=== PATIENT | female | born 1955 | race Caucasian/White ===

== ENCOUNTER 2016-03-29 09:28 | Inpatient (IN) | payer OTHER ==
--- NOTE | 2016-03-27 10:25 | GHP ---
[f rep st] PREOP HISTORY AND PHYSICAL DATE OF ADMISSION: 03/29/2016 PROBLEM: Left hip arthritis. HISTORY OF PRESENT ILLNESS: The patient is a 60-year-old woman admitted for a left total hip arthrop lasty. She has had progressive pain in her left hip for the past 6-8 months. She is having daily pa in and she has night pain when she rolls over onto the left hip. Standing and walking are painful. Her activities are very limited. She states that she has gained 40 pounds because she cannot walk fo r exercise. She is limping. She uses Aleve regularly. She has trouble putting on her shoes and soc ks on the left foot. Because of severe pain, and limitation of activities and function, and she has failed nonsurgical treatment, she will undergo a left total hip arthroplasty. PAST MEDICAL HISTORY: Overall, she is in excellent general health. No history of heart disease, david nts, DVT, hepatitis, or sleep apnea. No history of previous serious MRSA staph infections. CURRENT MEDICATIONS: None. ALLERGIES: Penicillin caused a rash many years ago. Drug allergies: None. Latex allergy: None. 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 She is smoking 6-8 cigarettes per day. She dr inks alcohol regularly. She is . FAMILY HISTORY: Negative. PHYSICAL EXAMINATION: GENERAL: She is an alert, healthy-appearing woman. EYES: The conjunctivae a nd sclerae are clear. Pupils are round and reactive. MOUTH: Fair oral hygiene. CHEST: Clear. No wheezing. HEART: Regular rhythm. No murmurs. EXTREMITIES: Pertinent findings are limited to her left hip. She has full hip extension and 80 degrees of flexion. External rotation 20 degrees. Inte rnal rotation 0 degrees. Abduction 20 degrees. She has pain at the extremes of motion. IMAGING: Films show degenerative arthritis of her left hip with cartilage space narrowing. She has moderate degenerative arthritis in her right hip. IMPRESSION ON ADMISSION: Bilateral hip degenerative arthritis. The left hip is more advanced and mo re symptomatic. She will undergo a left total hip arthroplasty. The surgery has been described to her, including the risks, complications, expectations, recovery myla e, and nonsurgical options. I have specifically discussed with her the risk of dislocation, leg emely th inequality, infection, and sciatic nerve injury. She understands that she is relatively young for a total hip replacement and may need revision surgery in the future. All her questions have been an swered and she consents to surgery. /[id number]/MODL
[~2016-03-29 09:28] MED LIST: ACETAMINOPHEN 325 MG TAB PO ONE; CHLORHEXIDINE GLUC HIBICLENS 118 ML BTL TP ONE; DEXAMETHASONE 4 MG/ML VIAL IVP ONE; FAMOTIDINE 20 MG TAB PO ONE; NS IV ONE; POVIDONE-IODINE 20 ML in SODIUM CL IRRIG SOLUTION 500 ML IRR ONE; ROPI/epiNEPH/KETOROLAC JOINT COCKTAIL IU ONE; TRANEXAMIC ACID IV ONE
[2016-03-29] MEDS ORDERED: DEXAMETHASONE 4 MG/ML VIAL ONE (10:07)
[2016-03-29] MEDS ORDERED: FAMOTIDINE 20 MG TAB ONE (10:07)
[2016-03-29] MEDS ORDERED: CEFAZOLIN 2 GM/DEXTROSE/100 ML BAG IV ONE (10:08)
[2016-03-29] MEDS ORDERED: ACETAMINOPHEN 325 MG TAB ONE (10:08)
[2016-03-29] MEDS ORDERED: ceFAZolin 1 GM/5 ML SYR ONE (10:10)
[2016-03-29] MEDS ORDERED: SKIN ADHESIVE (DERMABOND) 1 EACH TP ONE (10:10)
[2016-03-29] MEDS ORDERED: fentaNYL 100 MCG/2 ML INJ ONE (11:23)
[2016-03-29] MEDS ORDERED: PROPOFOL/EMULSION 500 MG/50 ML BOTTLE IV ONE (11:24)
[2016-03-29] MEDS ORDERED: MIDAZOLAM 2 MG/2 ML VIAL ONE (12:08)
[2016-03-29] MEDS ORDERED: LIDOCAINE 2% 5 ML SDV ONE (12:31)
--- NOTE | 2016-03-29 13:47 | POSTOPPROG ---
Post Op Note Date of Operation: 03/29/16 Surgeon: Demarcus Cottrell Account Specialist: Adrian Anesthesiologist: Rickie Anesthesia: IV Sedation, Spinal Post-op Diagnosis: left hip arthritis Procedure: left NABEEL Inf/Abcess present in the surg proc area at time of surgery?: No EBL: 100-500
[2016-03-29] MEDS ORDERED: PROMETHAZINE HCL 25 MG SUPPR PR PRN (13:59)
[2016-03-29] MEDS ORDERED: NS 500 ML IV PRN (13:59)
[2016-03-29] MEDS ORDERED: PROMETHAZINE HCL 25 MG/ML VIAL IVP PRN (13:59)
[2016-03-29] MEDS ORDERED: LACTULOSE 20 GM/30 ML UDCUP PO PRN (13:59)
[2016-03-29] MEDS ORDERED: KETOROLAC 30 MG/1 ML SDV IVP PRN (13:59)
[2016-03-29] MEDS ORDERED: traMADol 50 MG TAB PO PRN (13:59)
[2016-03-29] MEDS ORDERED: ONDANSETRON DISINTEGRATING 4 MG TAB PO PRN (13:59)
[2016-03-29] MEDS ORDERED: ONDANSETRON 4 MG/2 ML VIAL IVP PRN (13:59)
[2016-03-29] MEDS ORDERED: diphenhydrAMINE 25 MG CAP PO PRN (13:59)
[2016-03-29] MEDS ORDERED: TEMAZEPAM 15 MG CAP PO PRN (13:59)
[2016-03-29] MEDS ORDERED: PHARMACY PAIN CONSULT 1 EA MISC PRN (13:59)
[2016-03-29] MEDS ORDERED: CYCLOBENZAPRINE 10 MG TAB PO PRN (13:59)
[2016-03-29] MEDS ORDERED: METOCLOPRAMIDE 10 MG/2 ML VIAL IVP PRN (13:59)
[2016-03-29] MEDS ORDERED: DIPHENOXYLATE/ATROPINE LOMOTIL 1 TAB PO PRN (13:59)
[2016-03-29] MEDS ORDERED: POLYETHYLENE GLYCOL 3350 17 GM PKT PO PRN (13:59)
[2016-03-29] MEDS ORDERED: MAGNESIUM HYDROXIDE 30 ML UDCUP PO PRN (13:59)
[2016-03-29] MEDS ORDERED: BISACODYL 10 MG SUPP PR PRN (13:59)
[2016-03-29] MEDS ORDERED: LR 1,000 ML IV SCH (14:00)
--- NOTE | 2016-03-29 15:07 | GOP ---
[f rep st] OPERATIVE REPORT DATE OF OPERATION: 03/29/2016 SURGEON: Demarcus Cottrell MD STAVE JOINTER: Randy Meneses and Link Herndon. ANESTHESIA: Combination of Marcaine spinal and IV sedation. ANESTHESIOLOGIST: Dr. Kofi Damian. PREOPERATIVE DIAGNOSIS: Left hip degenerative arthritis. POSTOPERATIVE DIAGNOSIS: Left hip degenerative arthritis. PROCEDURE PERFORMED: A left total hip arthroplasty, ceramic femoral head on highly cross-link polyet hylene cup liner. FINDINGS: DESCRIPTION OF PROCEDURE: The patient was given 2 g of IV Ancef preoperatively within 60 minutes of surgery. She also received IV tranexamic acid at a dose of 20 mg/kg. She was placed on the operatin g room table and given spinal anesthesia with Marcaine by Dr. Damian. She was then placed supin e and given IV sedation. A Burrell catheter was not used. She wore a SUHA stocking and SCD on the nono perative leg. She was rolled to the right lateral decubitus position. The position was secured with the pegboard table attachment. An axillary roll was used and all pressure points were carefully pad ded. I was careful to lock her pelvis in a rigid vertical position. She was a large lady and that m nina positioning difficult. Her perineum was isolated with plastic adhesive drapes. The left hip and left lower extremity were prepped with ChloraPrep. They were draped free using sterile sheets, stoc kinette, and Ioban plastic drapes. The World Health Organization time-out was performed to verify the correct surgical side and the [facility] patient identity. The Early time-out was also performed. I made a 5-6 inch straight oblique posterolateral hip skin incision. Subcutaneous tissues were sharp ly divided and hemostasis was obtained using electrocautery. She had a deep layer of subcutaneous fa t. The fascia mckenna was identified and split along the axis of its fibers. I then curved posteriorly and proximally and split the fascia of gluteus maris and bluntly split the muscle fibers in line w ith their orientation. The Charnley self-retaining retractor was inserted. Her sciatic nerve was lo cated, partially exposed and protected throughout the procedure. The external rotators and the poste rior hip capsule were divided as separate layers at the base of the femoral neck, tagged and reflecte d posteriorly. A smooth 8-inch Steinmann pin was inserted directly into the ilium superior to the ac etabulum. An 8-inch drill bit was inserted vertically into the greater trochanter and parallel to th e first pin. The distance between the 2 was measured for leg length reference. Her femoral head was dislocated posteriorly. Severe degenerative changes were present on her femoral head. The femoral neck was osteotomized at the appropriate level and inclination. I was careful to preserve all the posterior capsule and most of the anterior capsule. The remnant of her damaged labrum was excised. I prepared the femur first. This allowed me to supervisor fabrication the amount of natural femoral neck anteversion. This in turn allowed me to later determine the correct amount of cup anteversion. She had approxim ately 15 degrees of natural femoral neck anteversion. Her canal was opened laterally with a box chis el. I reamed and broached sequentially up to size 9. The size 9 broach was used as a trial stem. I was careful to lateralize adequately. Appropriate retractors were inserted to expose the acetabulum . Her acetabulum was reamed sequentially to 51 mm. I selected a 52 mm Perris Tritanium solid-backe d hemispherical shell. This was tapped securely into place in the proper degree of inclination and a nteversion. I used the transverse acetabular ligament and other acetabular bony landmarks to help me properly orient the cup. The fixation was tight and I did not think supplemental screw fixation was necessary. I did insert a screw in metal dome hole plug. I performed a series of trial reductions to determine length and stability. I concluded that the siz e 9 stem with a 0 mm neck length and a 32 mm head with a flush-mounted trial liner gave me the proper combination of appropriate length and good anterior and posterior stability. Because she had a good amount of anteversion on her femoral neck. I was careful not to over antevert the cup. The flush Maria Esther X3 highly cross-linked polyethylene liner was inserted and tapped securely into sherwin ce. I chose the Maria Esther secure fit max stem in a size 9 with standard offset. This was inserted, pr ess-fit and was tight. I did 1 final trial reduction and confirmed that the 0 mm neck length with a 32 mm head was the proper combination. I selected the Maria Esther Biolox Delta ceramic head with an outs yulia diameter of 32 mm and a neck length of 0 mm. The head was tapped securely onto the clean trunnio n. The acetabulum was irrigated and cleaned and the hip was reduced 1 final time. She had excellent anterior and posterior stability and appropriate length. 40 mL of the joint anesthetic cocktail were injected into the capsule, the deep musculature and the s ubcutaneous tissues along the skin edges. The joint was thoroughly irrigated 1 final time with a dil isaías Betadine solution. Her sciatic nerve was reinspected and looked unharmed. The external rotators and the posterior hip capsule were repaired in separate layers with #2 FiberWire sutures through dri ll holes in the greater trochanter. This provided a strong posterior capsular and external rotator r epair. The fascia mckenna was closed first with a couple of interrupted [id number]-[id number] #2 FiberWire martinez tures followed by a running #2 barbed Ethicon Stratafix PDO suture. The subcutaneous tissues were cl osed in layers using first interrupted 2-0 Monocryl sutures followed by a running #3 barbed Ethicon S tratafix Monoderm subcuticular suture. The skin edges were reapproximated and sealed with Dermabond glue. The wound was covered with a strip of Telfa and everything was held in place with a piece of c lear plastic Tegaderm. A long-leg SUHA stocking and SCD were applied to her left lower extremity. An abduction pillow was pl aced between her knees. She was awakened from anesthesia and rolled to the supine position on her [facility] gurney. She was taken to PACU in satisfactory condition. There were no recognized intraopera tive complications. The estimated blood loss was 400 mL. I used a Maria Esther titanium press-fit solid backed acetabular shell with an outside diameter of 52 mm. The liner was a Perris X3 flush highly cross-linked liner with an inside diameter of 32 mm. The fe moral component was a standard offset Maria Esther secure fit max stem in a size 9 and press-fit. Her fem oral head was a Perris Biolox Delta ceramic head with a 0 neck length and a 32 mm outside diameter. Randy Meneses and Link Herndon acted as surgical assistants. Their assistance was a medical necess ity. /[id number]/MODL
--- NOTE | 2016-03-29 15:07 | DX ---
Single-View Pelvis at 1417 Hours History: Left total hip arthroplasty. Findings: Left total hip arthroplasty appears in anatomic alignment. Right hip demonstrates no degene rative changes. Impression: Left total hip arthroplasty appears in anatomic alignment.
[2016-03-29] MEDS: ACETAMINOPHEN 325 MG TAB PO SCH ×2 (16:49→23:08)
[2016-03-29] MEDS: TRANEXAMIC ACID 650 MG TAB PO SCH ×2 (16:49→23:09)
[2016-03-29] MEDS ORDERED: NICOTINE 21 MG/24 HR PATCH TD SCH ×2 (17:30)
[2016-03-29] MEDS: oxyCODONE IR 5 MG TAB PO PRN ×2 (18:53→23:08)
[2016-03-29] MEDS: FAMOTIDINE 20 MG TAB PO SCH (19:55)
[2016-03-29] MEDS: SENNOSIDES/DOCUSATE SODIUM TAB PO SCH (19:55)
[2016-03-29] MEDS: ceFAZolin 2 GM/DEXTROSE 100 ML IV SCH (19:55)
[2016-03-29] MEDS: ASPIRIN 325 MG TAB PO SCH (19:55)
[2016-03-30 03:16] VITALS: RESP 16
[2016-03-30 03:54] VITALS: O2SAT 96
[2016-03-30] MEDS: ceFAZolin 2 GM/DEXTROSE 100 ML IV SCH (04:03)
[2016-03-30] MEDS: oxyCODONE IR 5 MG TAB PO PRN ×2 (04:06→11:41)
[2016-03-30] MEDS: ACETAMINOPHEN 325 MG TAB PO SCH ×2 (04:59→11:40)
[2016-03-30 05:29] LABS: HEMATOCRIT 36.5 % (38.0-47.0); HEMOGLOBIN 12.2 g/dL (12.6-16.3)
[2016-03-30 08:24] VITALS: BP 97/48; PULSE 78; TEMP 97.7
[2016-03-30] MEDS ORDERED: FERROUS SULFATE 140 MG TAB.ER PO SCH (09:00)
--- NOTE | 2016-03-30 09:29 | SOAPPROG ---
SOAP Progress Note Assessment/Plan: Assessment: Afebrile. Moderate pain. Walking in room. Dsg is dry. Moderate ecchymosis. Sciatic nerve intact. Films look good. H/H is good. Plan: PT today. DC later today. 03/30/16 09:28 Objective: Vital Signs Temp Pulse Resp BP Pulse Ox 36.5 C 78 16 97/48 L 96 03/30/16 08:00 03/30/16 08:00 03/30/16 08:00 03/30/16 08:00 03/30/16 08:00 Laboratory Results 03/30/16 04:26 03/29/16 03/30/16 03/31/16 05:59 05:59 05:59 Intake Total Output Total 4280 Balance 15580 ICD10 Worksheet Patient Problems: Problems Problem Status Diagnosed Primary osteoarthritis of left hip Acute
--- NOTE | 2016-03-30 09:30 | PDIAF ---
- Diagnosis Diagnosis: left hip arthritis Code Status: Full Code - Medication Management Discharge Medications: Medications to Continue on Transfer Naproxen Sodium [Aleve 220 MG (*)] 440 mg PO DAILY PRN 03/14/16 [Last Taken Unknown] Acetaminophen [Tylenol 325mg (*)] 650 mg PO Q6HRS #0 tab 03/30/16 [Last Taken Unknown] Aspirin [Aspirin 325 mg (*)] 325 mg PO DAILY #21 tab 03/30/16 [Last Taken Unknown] Ferrous Sulfate [Slow Fe 140 MG (*)] 140 mg PO DAILY #30 tab.er 03/30/16 [Last Taken Unknown] Ondansetron Odt [Zofran Odt 4 mg (*)] 4 mg PO Q4HRS PRN #0 tab 03/30/16 [Last Taken Unknown] oxyCODONE IR [Oxycodone Ir (*)] 5 - 10 mg PO Q3HRS PRN #0 tab 03/30/16 [Last Taken Unknown] traMADol [Ultram 50 mg (*)] 50 mg PO Q6HRS PRN #0 tab 03/30/16 [Last Taken Unknown] Discharge Medications: Refer to the Discharge Home Medication list for PRN reason. PICC Care - Routine: N/A - Orders Services needed: Home Care, Physical Therapy Home Care Face to Face: I certify that this patient was under my care and that I had the required [id number] encounter meeting the encounter requirements on the discharge day. My findings support the fact that the patient is homebound as defined in CMS Chapter 7 Medicare Benefits Manual 30.1.1, The condition of the patient is such that there exists a normal inability to leave home and consequently, leaving home would require a considerable and taxing effort. Diet Recommendation: no restrictions on diet Diet Texture: Regular Texture Diet Burrell: Not applicable Bill Stockings Discontinue Date: 1 week Wound Care Instructions: keep clean and dry. You may shower. Activity/Weight Bearing Restrictions: as tolerated. - Follow Up Care Current Providers and Referrals: Cathie Vance MD [Primary Care Provider] - Demarcus Cottrell MD [Medical Doctor] - follow up in 2 weeks ()
--- NOTE | 2016-03-30 10:14 | GDS ---
[f rep st] DISCHARGE SUMMARY ADMITTING DIAGNOSIS: Left hip advanced degenerative arthritis. DISCHARGE DIAGNOSIS: Left hip advanced degenerative arthritis. NAME OF PROCEDURE: 03/29/2016: Left total hip arthroplasty, ceramic femoral head on highly cross-li nk polyethylene cup liner. POSTOPERATIVE DIAGNOSIS: None. CONDITION ON DISCHARGE: Improved. DESCRIPTION OF HOSPITAL COURSE: The patient was admitted to the hospital on the morning of surgery. Her admission CBC, electrolytes, and BUN and creatinine were all normal. The same day under combina tion of Marcaine, spinal and IV sedation, she underwent a left total hip arthroplasty. Postoperative ly, she was treated with multimodal DVT prophylaxis including aspirin. On the 1st postoperative day, her hemoglobin and hematocrit 12.2 and 36.5. She did not require any transfused blood. She was see n by Physical Therapy and made good progress with ambulation and stairs. By the time of discharge, s he was afebrile, her wound was clean and dry, and she was independent walking with a walker. DISPOSITION: The patient is discharged to her home. She will have home physical therapy. Continue aspirin 325 mg p.o. daily for 21 days. She may progress to full weightbearing on the left as tolerat ed. Use an abduction pillow in bed for 3 weeks. Use SUHA stockings for 1 week. She has prescription s for oxycodone and tramadol for pain control. I will see her back in the office on April 21, 2016 . If there are any problems, she is to call me at the office. /[id number]/MODL
[2016-03-30] MEDS: ASPIRIN 325 MG TAB PO SCH (11:40)
[2016-03-30] MEDS: FAMOTIDINE 20 MG TAB PO SCH (11:41)
[2016-03-30] MEDS: SENNOSIDES/DOCUSATE SODIUM TAB PO SCH (11:41)
== END 2016-03-30 14:54 | disposition home health service (06) | DRG 470 ==
LOC: F3N 09:28
PROVIDERS: ADMIT Orthopaedic Surgery; ATTEND Orthopaedic Surgery
PROC: 0SRB04Z Replacement of Left Hip Joint with Ceramic on Polyethylene Synthetic Substitute, Open Approach (ICD-10-PCS; principal; 2016-03-29 11:15)
DX: M16.12 Unilateral primary osteoarthritis, left hip (principal); F17.210 Nicotine dependence, cigarettes, uncomplicated; E66.9 Obesity, unspecified
CPT/HCPCS: 97110-GP; 97116-GP; 97161-GP; 97165-GO; J0171; J0690; J1100; J1885; J2250; J2704; J2795; J3010

== ENCOUNTER 2016-08-23 07:26 | Inpatient (IN) | payer OTHER ==
[2016-08-18 16:25] LABS: % IMMATURE GRANULYOCYTES 0.1 % (0.0-1.1); ABSOLUTE IMMATURE GRANULOCYTES 0.01 10^3/uL (0.00-0.10); ADD DIFF? NO; ADD MORPH? NO; ADD SCAN? NO; ATYPICAL LYMPHOCYTE FLAG 20 (0-99); FRAGMENT RBC FLAG 0 (0-99); HEMATOCRIT 43.6 % (38.0-47.0); HEMOGLOBIN 14.6 g/dL (12.6-16.3); LEFT SHIFT FLG 0 (0-99); LIPEMIA HEMOLYSIS FLAG 80 (0-99); MEAN CELL HEMOGLOBIN 32.4 pg (27.9-34.1); MEAN CELL HEMOGLOBIN CONCENTR. 33.5 g/dL (32.4-36.7); MEAN CELL VOLUME 96.9 fL (81.5-99.8); MEAN PLATELET VOLUME 11.3 fL (8.7-11.7); PLATELET CLUMPS FLAG 0 (0-99); PLATELET COUNT 227 10^3/uL (150-400); RED CELL DISTRIBUTION WIDTH 12.8 % (11.5-15.2)
--- NOTE | 2016-08-19 09:15 | GHP ---
[f rep st] PREOP HISTORY AND PHYSICAL DATE OF OPERATION: She will be an a.m. admission for surgery on August 23, 2016. PROBLEM: Right hip arthritis. HISTORY OF PRESENT ILLNESS: The patient is a 60-year-old woman admitted for a right total hip arthroplasty. She has had progressive pain in both hips for the past 10-12 months. She has been having daily pain and night pain. Walking and standing are painful. Her activities are limited. She underwent a left total hip arthroplasty on March 29, 2016, with an excellent result. She is admitted for a right total hip arthroplasty now. PAST MEDICAL HISTORY: Overall, she is in excellent general health. No history of heart disease, stents, DVT, or sleep apnea. CURRENT MEDICATIONS: None. DRUG ALLERGIES: Penicillin caused a rash many years ago. METAL ALLERGIES: None. LATEX ALLERGY: None. SOCIAL HISTORY: The patient is . 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 She is still smoking 6-8 cigarettes per day. She drinks alcohol regularly. FAMILY HISTORY: Negative. PHYSICAL EXAMINATION: GENERAL: She is a healthy-appearing woman. Height 5 feet 6-1/2 inches. Weight 205 pounds. BMI 32.6. EYES: The conjunctivae and sclerae are clear. Pupils are round and reactive. MOUTH: Fair oral hygiene. CHEST: Clear. HEART: Regular rhythm. No murmurs. EXTREMITIES: Pertinent findings are limited to her right hip. She has full hip extension and 100 degrees of flexion. External rotation 30 degrees. Internal rotation 0 degrees. Abduction 20 degrees. She has pain at the extremes of motion. IMAGING: Her films show degenerative arthritis in her right hip. Her left total hip looks fine. IMPRESSION ON ADMISSION: 1. Right hip arthritis. She is prepared for a right total hip arthroplasty. 2. Six months status post successful left total hip arthroplasty. /[id number]/MODL MTDD
[2016-08-23] MEDS ORDERED: LIDOCAINE 1% 2 ML INJ ONE (08:13)
[2016-08-23] MEDS ORDERED: ceFAZolin 1 GM/5 ML SYR ONE (08:17)
[2016-08-23] MEDS ORDERED: DEXAMETHASONE 4 MG/ML VIAL ONE (08:47)
[2016-08-23] MEDS ORDERED: CEFAZOLIN 2 GM/DEXTROSE/100 ML BAG IV ONE (08:47)
[2016-08-23] MEDS ORDERED: ACETAMINOPHEN 325 MG TAB ONE ×2 (08:47→12:49)
[2016-08-23] MEDS ORDERED: FAMOTIDINE 20 MG TAB ONE (08:50)
[2016-08-23] MEDS ORDERED: FAMOTIDINE 20 MG TAB PO ONE (09:00)
[2016-08-23] MEDS ORDERED: ROPI/epiNEPH/KETOROLAC JOINT COCKTAIL IU ONE (09:00)
[2016-08-23] MEDS ORDERED: ACETAMINOPHEN 325 MG TAB PO ONE (09:00)
[2016-08-23] MEDS ORDERED: DEXAMETHASONE 4 MG/ML VIAL IVP ONE (09:00)
[2016-08-23] MEDS ORDERED: POVIDONE-IODINE 20 ML in SODIUM CL IRRIG SOLUTION 500 ML IRR ONE (09:00)
[2016-08-23] MEDS ORDERED: TRANEXAMIC ACID 1,860 MG in NS 100 ML IV ONE (09:00)
[2016-08-23] MEDS ORDERED: CHLORHEXIDINE GLUC HIBICLENS 118 ML BTL TP ONE (09:00)
[2016-08-23] MEDS ORDERED: CEFAZOLIN 2 GM/DEXTR 100 ML IV ONE (09:00)
[2016-08-23] MEDS ORDERED: MIDAZOLAM 2 MG/2 ML VIAL ONE (09:23)
[2016-08-23] MEDS ORDERED: PROPOFOL 200 MG/20 ML VIAL ONE ×3 (09:29→10:24)
[2016-08-23] MEDS ORDERED: PROMETHAZINE HCL 25 MG/ML INJ IVP PRN (11:21)
[2016-08-23] MEDS ORDERED: traMADol 50 MG TAB PO PRN (11:21)
[2016-08-23] MEDS ORDERED: PROMETHAZINE HCL 25 MG SUPPR PR PRN (11:21)
[2016-08-23] MEDS ORDERED: TEMAZEPAM 15 MG CAP PO PRN (11:21)
[2016-08-23] MEDS ORDERED: NS 500 ML IV PRN (11:21)
[2016-08-23] MEDS ORDERED: DIPHENOXYLATE/ATROPINE LOMOTIL 1 TAB PO PRN (11:21)
[2016-08-23] MEDS ORDERED: LACTULOSE 20 GM/30 ML UDCUP PO PRN (11:21)
[2016-08-23] MEDS ORDERED: MAGNESIUM HYDROXIDE 30 ML UDCUP PO PRN (11:21)
[2016-08-23] MEDS ORDERED: ONDANSETRON 4 MG/2 ML VIAL IVP PRN (11:21)
[2016-08-23] MEDS ORDERED: diphenhydrAMINE 25 MG CAP PO PRN (11:21)
[2016-08-23] MEDS ORDERED: POLYETHYLENE GLYCOL 3350 17 GM PKT PO PRN (11:21)
[2016-08-23] MEDS ORDERED: METOCLOPRAMIDE 10 MG/2 ML VIAL IVP PRN (11:21)
[2016-08-23] MEDS ORDERED: ONDANSETRON DISINTEGRATING 4 MG TAB PO PRN (11:21)
[2016-08-23] MEDS ORDERED: BISACODYL 10 MG SUPP PR PRN (11:21)
[2016-08-23] MEDS ORDERED: PHARMACY PAIN CONSULT 1 EA MISC PRN (11:21)
--- NOTE | 2016-08-23 11:26 | POSTOPPROG ---
Post Op Note Date of Operation: 08/23/16 Surgeon: Demarcus Cottrell Pinion Sorter: Adrian Anesthesiologist: Francisco J Anesthesia: IV Sedation, Spinal Post-op Diagnosis: R hip arthritis Procedure: R NABEEL Inf/Abcess present in the surg proc area at time of surgery?: No EBL: 100-500
[2016-08-23] MEDS ORDERED: LR 1,000 ML IV SCH (11:30)
[2016-08-23] MEDS: KETOROLAC 30 MG/1 ML SDV IVP PRN ×2 (12:00→18:18)
[2016-08-23] MEDS: CYCLOBENZAPRINE 10 MG TAB PO PRN ×2 (12:00→21:00)
[2016-08-23] MEDS: ACETAMINOPHEN 325 MG TAB PO SCH ×2 (12:00→18:09)
--- NOTE | 2016-08-23 12:37 | GOP ---
[f rep st] OPERATIVE REPORT DATE OF OPERATION: 08/23/2016 SURGEON: Demarcus Cottrell MD HOOP ROLLS OPERATOR: Randy Meneses, [facility], Shahid Herndon, PAC. ANESTHESIA: A combination of Marcaine, spinal, and IV sedation. ANESTHESIOLOGIST: Brandon Marx MD. PREOPERATIVE DIAGNOSIS: Right hip arthritis. POSTOPERATIVE DIAGNOSIS: Right hip arthritis. PROCEDURE PERFORMED: Right total hip arthroplasty, ceramic femoral head on highly cross-linked poly ethylene cup liner. FINDINGS: DESCRIPTION OF PROCEDURE: The patient was given 2 g of IV Ancef preoperatively within 60 minutes of surgery. She also received IV tranexamic acid at a dose of 20 mg/kg. She was placed on the operat ing room table and given spinal anesthesia with Marcaine by Dr. Marx. She was then placed supin e and given IV sedation. A Burrell catheter was not used. She wore a SUHA stocking and SCD on the non operative leg. She was rolled to the left lateral decubitus position. The position was secured wit h the pegboard table attachment. An axillary roll was used, and all pressure points were carefully padded. I was careful to lock her pelvis in a rigid vertical position. Her perineum was isolated w ith plastic adhesive drapes. She was a big lady, height 5 feet 6-1/2 inches, weight 205 pounds, BMI 32.6. Her position was secured with the pegboard table attachment. An axillary roll was used, and all pressure points were carefully padded. I was careful to lock her pelvis in a vertical position . Her perineum was isolated with plastic adhesive drapes. The right hip and right lower extremity were prepped with ChloraPrep. They were draped free using sterile sheets, stockinette, and Ioban pl astic drapes. The World Health Organization time-out procedure was performed to verify the correct surgical side a nd the correct patient identity. The [place] time-out was also performed. I made a 5 to 6-inch straight oblique posterolateral hip skin incision. Subcutaneous tissues were s harply divided, and hemostasis was obtained using electrocautery. The fascia mckenna was identified an d split along the axis of its fibers. I then curved posteriorly and proximally and split the fascia of the gluteus maris and bluntly split the muscle fibers in line with their orientation. The Aga bailey self-retaining retractor was inserted. Her sciatic nerve was located, partially exposed, and protected throughout the procedure. The external rotators and the posterior hip capsule were divide d as separate layers at the base of the femoral neck, tagged, and reflected posteriorly. A smooth 8 -inch Steinmann pin was inserted vertically into the ilium, superior to the acetabulum. An 8-inch d rill bit was inserted vertically into the greater trochanter and parallel to the first pin. The dis tance between the two was measured for leg length reference. Her femoral head was dislocated cable installer iorly. Her femoral neck was osteotomized at the appropriate level and inclination. I was careful to preserve all the posterior capsule and most of the anterior capsule. The remnant o f her damaged labrum was excised. I prepared the femur first. This allowed me to meeting/event planner the amount of natural femoral neck anteversion . This, in turn, allowed me to later determine the correct amount of cup anteversion. She had appr oximately 10-15 degrees of natural femoral neck anteversion. The canal was opened laterally with a box chisel. I reamed and broached sequentially up to a size 9. I used a size 9 broach as a trial s tem. I was careful to lateralize adequately. Appropriate retractors were inserted to expose the acetabulum. The acetabulum was reamed sequential ly up to 51 mm. I selected a 52 mm Reardan Tritanium solid-backed hemispherical shell. This was ta pped securely into place in the proper degree of inclination and anteversion. I used the transverse acetabular ligament and other acetabular bony landmarks to help me properly orient the cup. I inse rted a screw-in metal dome hole plug. I performed a series of trial reductions to determine length and stability. I concluded that the si ze 9 stem with a -2.5 mm neck length, a 32 mm head, and a flush liner gave me the proper combination of appropriate length and good anterior and posterior stability. She was a few millimeters short p reoperatively, and I was intentionally lengthening her. The flush or zero-degree Maria Esther X3 highly crosslink polyethylene liner was inserted and tapped secu rely into place. I selected the Maria Esther Secur-Fit Max stem in a size 9 with standard offset. This was inserted press-fit and was very tight. I did 1 final trial reduction and confirmed that the -2. 5 mm neck length with a 32 mm head was the proper combination. I selected the Reardan Biolox Delta ceramic head with an outside diameter of 32 mm and a neck length of -2.5 mm. The head was tapped se curely onto the clean trunnion. Her acetabulum was irrigated and cleaned, and the hip was reduced 1 final time. She had excellent anterior and posterior stability and appropriate lengthening. 40 mL of the joint anesthetic cocktail was injected into the capsule, the deep musculature, and the subcutaneous tissues around the skin edges. The joint was thoroughly irrigated 1 final time with a dilute Betadine solution. Her sciatic nerve was reinspected and looked unharmed. The external rota tors and the posterior hip capsule were repaired in separate layers with #2 FiberWire sutures throug h drill holes in the greater trochanter. This provided a strong posterior capsular and external rot ator repair. Her fascia mckenna was closed first with 2 interrupted #2 [id number] FiberWire sutur es, followed by a running #2 barbed Ethicon Stratafix PDO suture. She had a 3-inch layer of subcuta neous fat. The subcutaneous tissues were closed in layers using interrupted 2-0 Monocryl sutures fi rst, and followed by a running 0 barbed Ethicon Stratafix Monoderm suture. The skin was closed with a running 3-0 barbed Ethicon Stratafix Monoderm subcuticular suture. The skin edges were reapproxi mated and sealed with Dermabond glue. The wound was covered with a strip of Telfa, and everything w as held in place with a piece of clear plastic Tegaderm. A long-leg SUHA stocking and SCD were applied to her right lower extremity. She wore a stocking and SCD on the opposite leg during the procedure. An abduction pillow was placed between her knees. Alex serna was awakened from anesthesia and rolled to the supine position on her [facility]. She was ta gissell to PACU in satisfactory condition. There were no recognized intraoperative complications. The estimated blood loss was about 300 mL. The sponge and needle count were correct on 2 occasions. I used a Reardan Tritanium hemispherical solid-backed acetabular shell with an outside diameter of 5 2 mm. The liner was a Reardan X3 zero-degree highly cross-linked liner with an inside diameter of 3 2 mm. The femoral component was a press-fit Maria Esther standard offset Secur-Fit Max stem in a size 9. The femoral head was a Maria Esther Biolox Delta ceramic head with a -2.5 mm neck length and a 32 mm ou tside diameter. Randy Meneses and Link Herndon acted as surgical assistants. Their assistance was a tal schumacher. /[id number]/MODL
[2016-08-23] MEDS ORDERED: KETOROLAC 30 MG/1 ML SDV ONE (12:49)
[2016-08-23] MEDS ORDERED: CYCLOBENZAPRINE 10 MG TAB ONE (12:49)
[2016-08-23] MEDS ORDERED: ceFAZolin 2 GM/DEXTROSE 100 ML IV SCH (14:00)
[2016-08-23] MEDS: ceFAZolin 2 GM in D5W 100 ML IV SCH ×2 (15:32→21:23)
[2016-08-23] MEDS: TRANEXAMIC ACID 650 MG TAB PO SCH (18:10)
[2016-08-23] MEDS: oxyCODONE IR 5 MG TAB PO PRN ×2 (18:13→21:01)
[2016-08-23] MEDS: ASPIRIN 325 MG TAB PO SCH (21:00)
[2016-08-23] MEDS: FAMOTIDINE 20 MG TAB PO SCH (21:01)
[2016-08-23] MEDS: SENNOSIDES/DOCUSATE SODIUM TAB PO SCH (21:04)
[2016-08-24] MEDS: KETOROLAC 30 MG/1 ML SDV IVP PRN ×3 (00:06→11:20)
[2016-08-24] MEDS: oxyCODONE IR 5 MG TAB PO PRN ×4 (00:14→11:21)
[2016-08-24] MEDS: TRANEXAMIC ACID 650 MG TAB PO SCH ×2 (00:14→08:18)
[2016-08-24] MEDS: ACETAMINOPHEN 325 MG TAB PO SCH ×3 (00:14→11:21)
[2016-08-24 05:22] LABS: HEMATOCRIT 36.1 % (38.0-47.0); HEMOGLOBIN 12.1 g/dL (12.6-16.3)
[2016-08-24 07:50] VITALS: BP 123/82; PULSE 86; RESP 18; TEMP 98; O2SAT 93
[2016-08-24] MEDS: SENNOSIDES/DOCUSATE SODIUM TAB PO SCH (08:17)
[2016-08-24] MEDS: ASPIRIN 325 MG TAB PO SCH (08:17)
[2016-08-24] MEDS: FAMOTIDINE 20 MG TAB PO SCH (08:18)
[2016-08-24] MEDS: CYCLOBENZAPRINE 10 MG TAB PO PRN (08:19)
--- NOTE | 2016-08-24 09:33 | SOAPPROG ---
SOAP Progress Note Assessment/Plan: Assessment: Afebrile. Up and walking. Mild pain. Mild ecchymosis around incision. Dsg is dry. Sciatic nerve intact. Films look good. Plan: DC today. 08/24/16 09:31 Objective: Vital Signs Temp Pulse Resp BP Pulse Ox 36.6 C 86 18 123/82 H 93 08/24/16 07:47 08/24/16 07:47 08/24/16 07:47 08/24/16 07:47 08/24/16 07:47 Laboratory Results 08/24/16 04:54 08/23/16 08/24/16 08/25/16 05:59 05:59 05:59 Intake Total 3910 Output Total 3750 Balance 160 ICD10 Worksheet Patient Problems: Problems Problem Status Onset Primary osteoarthritis of left hip Acute
--- NOTE | 2016-08-24 10:06 | GDS ---
[f rep st] DISCHARGE SUMMARY ADMISSION DIAGNOSIS: Right hip arthritis. DISCHARGE DIAGNOSIS: Right hip arthritis. OPERATION PERFORMED: 08/23/2016, a right total hip arthroplasty, ceramic femoral head on highly microbiology manager sslinked polyethylene cup liner. POSTOPERATIVE COMPLICATIONS: None. CONDITION ON DISCHARGE: Improved. DESCRIPTION OF HOSPITAL COURSE: The patient was admitted to the hospital on the morning of surgery. Her admission CBC was normal. The same day, under a combination of Marcaine spinal anesthesia and IV sedation, she underwent a right total hip arthroplasty. Postoperatively, she was treated with m ultimodal DVT prophylaxis, including aspirin. On the first postoperative day, her hemoglobin and he matocrit were 12.1 and 36.1. She did not require any transfused blood. She was seen by Physical Th luis angel and made very rapid progress with ambulation and stairs. By the time of discharge, she was af ebrile, her wound was clean and dry, and she was independent, walking with a walker. DISPOSITION: Patient discharged to her home. She will go to outpatient physical therapy. She may progress to full weightbearing on the right as tolerated. Use an abduction pillow in bed for 3 week s. Use aspirin 325 mg p.o. daily for 21 days. I will see her back in the office on 09/15/2016. Alex serna has prescriptions for oxycodone and tramadol for pain control. If any problems, she is to call me at the office. /[id number]/MODL
--- NOTE | 2016-08-24 11:33 | PDIAF ---
- Diagnosis Diagnosis: right hip OA Code Status: Full Code - Medication Management Discharge Medications: Medications to Continue on Transfer Naproxen Sodium [Aleve 220 MG (*)] 440 mg PO DAILY PRN 03/14/16 [Last Taken Unknown] Acetaminophen [Tylenol 325mg (*)] 650 mg PO Q6HRS #0 tab 08/24/16 [Last Taken Unknown] Aspirin [Aspirin 325 mg (*)] 325 mg PO DAILY #21 tab 08/24/16 [Last Taken Unknown] Ondansetron Odt [Zofran Odt 4 mg (*)] 4 mg PO Q4HRS PRN #0 tab 08/24/16 [Last Taken Unknown] oxyCODONE IR [Oxycodone Ir (*)] 5 - 10 mg PO Q3HRS PRN #0 tab 08/24/16 [Last Taken Unknown] traMADol [Ultram 50 mg (*)] 50 mg PO Q6HRS PRN #0 tab 08/24/16 [Last Taken Unknown] Discharge Medications: Refer to the Discharge Home Medication list for PRN reason. - Orders Services needed: Home Care, Physical Therapy Home Care Face to Face: I certify that this patient was under my care and that I had the required [id number] encounter meeting the encounter requirements on the discharge day. My findings support the fact that the patient is homebound as defined in CMS Chapter 7 Medicare Benefits Manual 30.1.1, The condition of the patient is such that there exists a normal inability to leave home and consequently, leaving home would require a considerable and taxing effort. Diet Recommendation: no restrictions on diet Diet Texture: Regular Texture Diet Burrell: Not applicable Bill Stockings Discontinue Date: 1 week Wound Care Instructions: keep clean and dry. You may shower. Activity/Weight Bearing Restrictions: as tolerated. No flexion of the hip past 90 degrees x 3 weeks - Follow Up Care Current Providers and Referrals: Cathie Vance MD [Primary Care Provider] - Demarcus Cottrell MD [Medical Doctor] - 09/15/16 8:00 am
== END 2016-08-24 11:50 | disposition home health service (06) | DRG 470 ==
LOC: F3N 07:26
PROVIDERS: ADMIT Orthopaedic Surgery; ATTEND Orthopaedic Surgery
PROC: 0SR904Z Replacement of Right Hip Joint with Ceramic on Polyethylene Synthetic Substitute, Open Approach (ICD-10-PCS; principal; 2016-08-23 09:45)
DX: M16.11 Unilateral primary osteoarthritis, right hip (principal); F17.210 Nicotine dependence, cigarettes, uncomplicated; Z96.642 Presence of left artificial hip joint
CPT/HCPCS: 97110-GP; 97116-GP; 97161-GP; 97530-GP; J0171; J0690; J1100; J1885; J2250; J2550; J2704; J2795

== ENCOUNTER 2016-11-12 09:08 | Emergency (ER) | payer OTHER ==
[2016-11-12] MEDS ORDERED: OXYCODONE/APAP 5/325 TAB PO ONE (10:04)
[2016-11-12] MEDS ORDERED: IBUPROFEN 600 MG TAB PO ONE (10:07)
--- NOTE | 2016-11-12 10:12 | EDPHY ---
H & P Stated Complaint: Fell walking up stairs last night injured left shoulder Source: Patient, Family Exam Limitations: No limitations - Personal History Current Tetanus Diphtheria and Acellular Pertussis (TDAP): Yes - Medical/Surgical History Hx Asthma: No Hx Chronic Respiratory Disease: No Hx Diabetes: No Hx Cardiac Disease: No Hx Renal Disease: No Hx Cirrhosis: No Hx Alcoholism: No Hx HIV/AIDS: No Hx Splenectomy or Spleen Trauma: No Other PMH: Abcessed appendectomy '07, Total hysterectomy - Social History Smoking Status: Former smoker Time Seen by Provider: 11/12/16 09:12 HPI/ROS: CHIEF COMPLAINT: left shoulder pain HISTORY OF PRESENT ILLNESS: 61-year-old [id number] female presents emergency department complaining of left shoulder pain. Patient reports last night at midnight she was walking up the stairs to go to sleep with her hands full. She reports she had an alcoholic beverage before bed. She tripped going up the stairs landing on her left shoulder. She denies loss of consciousness, remembers the entire accident. Her reports she is acting appropriate. Patient denies neck pain, headache, blurred vision or confusion. She does complain of left shoulder pain that is worse with movement. She denies elbow or wrist pain, no numbness or tingling in her hand. She denies head strike. REVIEW OF SYSTEMS: A comprehensive 10 point review of systems is otherwise negative aside from elements mentioned in the history of present illness. (Gay Flores) - Physical Exam Exam: GEN: Awake, alert, oriented, no acute distress RESP: nl resp effort MSK: No C-spine tenderness to palpation, left shoulder with decreased range of motion, tenderness to palpation to clavicle, no elbow tenderness or wrist tenderness, 2+ radial pulses, sensation intact to light touch Neuro: Grossly intact SKIN: bilateral mandible ecchymosis from recent dental surgery (Gay Flores) Constitutional: Initial Vital Signs Temperature (C) 37.2 C 11/12/16 09:10 Heart Rate 82 11/12/16 09:10 Respiratory Rate 14 11/12/16 09:10 Blood Pressure 150/77 H 11/12/16 09:10 O2 Sat (%) 93 11/12/16 09:10 O2 Delivery Mode Room Air Allergies/Adverse Reactions: Penicillins Allergy (Intermediate, Verified 03/14/16 15:06) Rash Home Medications: Medication Instructions Recorded Naproxen Sodium [Aleve 220 MG (*)] 440 mg PO DAILY PRN 03/14/16 Acetaminophen [Tylenol 325mg (*)] 650 mg PO Q6HRS #0 tab 08/24/16 Aspirin [Aspirin 325 mg (*)] 325 mg PO DAILY #21 tab 08/24/16 Ondansetron Odt [Zofran Odt 4 mg 4 mg PO Q4HRS PRN #0 tab 08/24/16 (*)] oxyCODONE IR [Oxycodone Ir (*)] 5 - 10 mg PO Q3HRS PRN #0 tab 08/24/16 traMADol [Ultram 50 mg (*)] 50 mg PO Q6HRS PRN #0 tab 08/24/16 oxyCODONE/APAP 5/325 [Percocet 1 - 2 tab PO Q6H PRN #12 tab 11/12/16 5/325] Medical Decision Making - Diagnostics Imaging: I viewed and interpreted images myself Other Provider: The patient was evaluated and managed by the Physician Producer Arborist Manager. My co- signature indicates that I have reviewed this chart and I agree with the findings and plan of care as documented. I am the secondary supervising physician. (Kika Smith) - Data Points Medications Given: Discontinued Medications Ibuprofen (Motrin) 600 mg PO EDNOW ONE Stop: 11/12/16 10:08 Last Admin: 11/12/16 10:53 Dose: 600 mg Oxycodone/Acetaminophen (Percocet 5/325) 2 tab PO EDNOW ONE Stop: 11/12/16 10:05 Last Admin: 11/12/16 10:08 Dose: 2 tab Departure - Departure Disposition: Home, Routine, Self-Care Clinical Impression: Closed left clavicular fracture Condition: Good Instructions: Clavicle Fracture (ED) Additional Instructions: Rest, ice, wear sling, take 600 mg of ibuprofen every 8 hours with food for 3-5 days as needed for pain. Take Percocet for severe pain. Follow up with orthopedist at 1st available appointment, call Monday to schedule this. Return to the emergency department for any numbness or tingling in your hand, pain that is not controlled, any new symptoms or concerns. You have been prescribed a narcotic. This can cause drowsiness. Do not drive or operate any machinery while taking this. This can also cause constipation. Drink plenty of water, eat fiber and take stool softeners over the counter as needed. Do not drink alcohol with the Percocet. 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
[2016-11-12 11:09] VITALS: BP 144/79; PULSE 79; RESP 18; TEMP 98.4; O2SAT 96
== END 2016-11-12 11:05 | disposition home or self-care (01) ==
DX: S42.032A Displaced fracture of lateral end of left clavicle, initial encounter for closed fracture (principal); Z79.82 Long term (current) use of aspirin; Z87.891 Personal history of nicotine dependence; W10.8XXA Fall (on) (from) other stairs and steps, initial encounter; Y92.89 Other specified places as the place of occurrence of the external cause; Y99.8 Other external cause status; Y93.01 Activity, walking, marching and hiking
CPT/HCPCS: A4565

== ENCOUNTER → 2017-02-14 | Outpatient (CLI) | payer OTHER | LOC: FIMAGING 08:18 | PROVIDERS: ATTEND Internal Medicine | DX: Z12.31 Encounter for screening mammogram for malignant neoplasm of breast (principal) | CPT/HCPCS: G0202 ==